=== PATIENT | male | born 1975 | race Caucasian/White ===

== ENCOUNTER 2019-11-01 07:15 | Emergency (ER) | payer OTHER, MEDICAID ==
[~2019-11-01] VITALS: Ht 182.9 cm; Wt 90.7 kg
[2019-11-01 07:55] VITALS: BP 123/73
== END 2019-11-01 07:55 | disposition home or self-care (01) ==
LOC: M.ERS 07:15
DX: B34.9 Viral infection, unspecified (principal); F17.210 Nicotine dependence, cigarettes, uncomplicated; Z95.5 Presence of coronary angioplasty implant and graft; Z88.2 Allergy status to sulfonamides

== ENCOUNTER 2020-12-30 06:35 | Emergency (ER) | payer OTHER, MEDICAID ==
[~2020-12-30] VITALS: Ht 182.9 cm; Wt 83.9 kg
[2020-12-30 07:00] LABS: URINE BILIRUBIN NEGATIVE (Negative); URINE BLOOD NEGATIVE (Negative); URINE CLARITY CLEAR; URINE COLOR YELLOW; URINE GLUCOSE-RANDOM NEGATIVE (Negative); URINE KETONES NEGATIVE (Negative); URINE LEUKOCYTES-REFLEX NEGATIVE (Negative); URINE NITRITE-REFLEX NEGATIVE (Negative); URINE PROTEIN NEGATIVE (Negative); URINE SPECIFIC GRAVITY <= 1.005 (1.005-1.030); URINE UROBILINOGEN 0.2 E.U./dl (0.2-1.0)
[2020-12-30 08:06] VITALS: BP 142/72
== END 2020-12-30 08:07 | disposition home or self-care (01) ==
LOC: M.ERS 06:35
PROVIDERS: Emergency Medicine
DX: A64 Unspecified sexually transmitted disease (principal); R30.0 Dysuria; I25.2 Old myocardial infarction; Z88.2 Allergy status to sulfonamides

== ENCOUNTER 2021-01-19 20:19 | Emergency (ER) | payer OTHER, MEDICAID ==
[~2021-01-19] VITALS: Ht 182.9 cm; Wt 83.9 kg
[2021-01-19] MEDS ORDERED: HYDROCODON-ACE1 EAC8 PO (21:23)
[2021-01-19] MEDS ORDERED: IBUPROFEN 800800 M1 PO (21:29)
[2021-01-19 21:50] VITALS: BP 122/74
== END 2021-01-19 21:50 | disposition home or self-care (01) ==
LOC: M.ERS 20:19
DX: S43.101A Unspecified dislocation of right acromioclavicular joint, initial encounter (principal); Z88.2 Allergy status to sulfonamides; Z87.891 Personal history of nicotine dependence; X50.1XXA Overexertion from prolonged static or awkward postures, initial encounter; Y93.75 Activity, martial arts; Y92.89 Other specified places as the place of occurrence of the external cause; Y99.8 Other external cause status

== ENCOUNTER 2021-07-18 07:04 | Emergency (ER) | payer OTHER, MEDICAID ==
[~2021-07-18] VITALS: Ht 182.9 cm; Wt 90.7 kg
[~2021-07-18 07:04] MED LIST: HYDROCODON-ACE1 EAC8 PO; IBUPROFEN 800800 M1 PO
[2021-07-18] MEDS ORDERED: FLEXERIL PO (08:16)
[2021-07-18] MEDS ORDERED: IBUPROFEN 800800 MG PO (08:16)
[2021-07-18 08:25] VITALS: BP 138/88
== END 2021-07-18 08:25 | disposition home or self-care (01) ==
LOC: M.ERS 07:04
DX: S46.811A Strain of other muscles, fascia and tendons at shoulder and upper arm level, right arm, initial encounter (principal); S10.83XA Contusion of other specified part of neck, initial encounter; Z88.2 Allergy status to sulfonamides; V89.2XXA Person injured in unspecified motor-vehicle accident, traffic, initial encounter; Y93.89 Activity, other specified; Y92.89 Other specified places as the place of occurrence of the external cause; Y99.8 Other external cause status